=== PATIENT | female | born 1935 | race Caucasian/White ===

== ENCOUNTER → 2021-02-25 | Outpatient (CLI) | payer MEDICARE, BC ==
[~2021-02-25] MED LIST: AMOXICILLIN 8751 TAB PO; ASMANEX HF100 MCG/Ac IH; ASPIRIN 81M81 MG/TA2 PO; CALCIUM CITRATE1 TA1 PO; FERROUS SU325 MG/TAB PO; MASON NATURAL1200 MG PO; MEVACOR40 MG PO; NIACOR500 MG PO; NORCO 325 MG-7.1 TAB PO; NORVASC 5MG5 MG/TAB PO; TENORMIN 5050 MG/TAB PO; THE MEDICINE S200 M2 PO
== END ==
LOC: COL.VAS 11:40
DX: I08.0 Rheumatic disorders of both mitral and aortic valves (principal)

== ENCOUNTER 2022-11-28 13:09 | Inpatient (IN) | payer MEDICARE, BC ==
[~2022-11-28] VITALS: Ht 152.4 cm; Wt 74.0 kg
[2022-11-28 14:26] LABS: ALBUMIN 2.9 gm/dL (3.4-4.8); BILIRUBIN,TOTAL 0.8 mg/dL (0.2-1.2); C-REACTIVE PROTEIN 12.56 mg/dL (0.00-0.50); CALCIUM 8.7 mg/dL (8.4-10.2); CREATININE, serum 1.29 mg/dL (0.57-1.11); POTASSIUM 4.7 mmol/L (3.5-4.5); TOTAL PROTEIN 7.1 gm/dL (6.2-8.1)
[2022-11-28 14:34] LABS: TROPONIN-I 0.019 ng/mL (0.00-0.033)
[2022-11-28 15:00] LABS: BASO % 0.2 % (0.0-2.0); GRAN # 8.6 K/mm3 (1.4-6.5); GRAN % 79.8 % (42.2-75.2); HEMATOCRIT 38.4 % (37.0-47.0); HEMOGLOBIN 12.3 g/dl (12.5-16.0); LYMPH # 1.2 K/mm3 (1.2-3.4); LYMPH % 11.2 % (20.0-51.0); MEAN CELL VOLUME 89 fl (80.0-100.0); MEAN CORPUSCULAR HEMOGLOBIN 29 pg (27-31); MEAN CORPUSCULAR HGB CONC 32 g/dl (33.0-37.0); MEAN PLATELET VOLUME 10.1 fl (7.4-10.4); MONO # 0.9 K/mm3 (0.1-0.6); MONO % 8.3 % (1.7-9.3); PLATELET COUNT 176 K/mm3 (130-400); RED BLOOD COUNT 4.31 M/mm3 (4.10-5.30); REDCELL DISTRIBUTION WIDTH-CV 14.6 % (11.5-14.5)
[2022-11-28] MEDS ORDERED: MELATONIN5 M1 SL (16:02)
[2022-11-28 16:44] VITALS: BP 113/71; PULSE 98; TEMP 99.8
[2022-11-28 16:58] LABS: COLLECTION METHOD CLEAN CATCH
[2022-11-28 17:08] LABS: URINE APPEARANCE Clear (CLEAR/HAZY); URINE COLOR Amber (YELLOW); URINE PROTEIN(semi-quant) 2+ (NEGATIVE)
[2022-11-28 17:09] LABS: URINE BLOOD TRACE-INTACT (NEGATIVE); URINE GLUCOSE Negative (NEGATIVE); URINE NITRATE Negative (NEGATIVE); URINE UROBILINOGEN 0.2 E.U/dL (0.2-1.0)
[2022-11-28 17:10] LABS: URINE KETONE TRACE (NEGATIVE)
[2022-11-28 18:11] LABS: MUCOUS Present (NOT PRESENT); URINE BACTERIA None Seen /hpf (NONE SEEN); URINE RBC 0-2 /hpf (0-2)
[2022-11-28 19:41] VITALS: BP 151/46; PULSE 87; TEMP 98.8
[2022-11-28 23:58] VITALS: BP 127/50; PULSE 62; TEMP 97.5
[2022-11-29 03:31] VITALS: BP 116/61; PULSE 61; TEMP 97.4
[2022-11-29 07:31] LABS: BASO % 0.1 % (0.0-2.0); GRAN # 8.1 K/mm3 (1.4-6.5); GRAN % 85.3 % (42.2-75.2); HEMATOCRIT 37.6 % (37.0-47.0); HEMOGLOBIN 12.2 g/dl (12.5-16.0); LYMPH # 0.8 K/mm3 (1.2-3.4); LYMPH % 8.1 % (20.0-51.0); MEAN CELL VOLUME 88 fl (80.0-100.0); MEAN CORPUSCULAR HEMOGLOBIN 29 pg (27-31); MEAN CORPUSCULAR HGB CONC 32 g/dl (33.0-37.0); MEAN PLATELET VOLUME 10.3 fl (7.4-10.4); MONO # 0.6 K/mm3 (0.1-0.6); MONO % 6.1 % (1.7-9.3); PLATELET COUNT 159 K/mm3 (130-400); RED BLOOD COUNT 4.27 M/mm3 (4.10-5.30); REDCELL DISTRIBUTION WIDTH-CV 14.7 % (11.5-14.5)
[2022-11-29 07:39] LABS: CALCIUM 8.8 mg/dL (8.4-10.2); CREATININE, serum 1.1 mg/dL (0.57-1.11); POTASSIUM 4.5 mmol/L (3.5-4.5)
[2022-11-29 08:39] VITALS: BP 137/64; PULSE 69; TEMP 97.9
[2022-11-29 11:46] VITALS: BP 151/61; PULSE 72; TEMP 97.5
[2022-11-29 15:59] VITALS: BP 133/57; PULSE 75; TEMP 97.7
[2022-11-29 20:05] VITALS: BP 139/68; PULSE 73; TEMP 97.4
[2022-11-30 00:02] VITALS: BP 119/51; PULSE 72; TEMP 97.4
[2022-11-30 03:33] VITALS: BP 141/58; PULSE 66; TEMP 97.9
[2022-11-30 07:19] LABS: CALCIUM 8.8 mg/dL (8.4-10.2); CREATININE, serum 1.52 mg/dL (0.57-1.11); POTASSIUM 4.7 mmol/L (3.5-4.5)
[2022-11-30 08:07] LABS: BASO % 0.1 % (0.0-2.0); GRAN # 13.3 K/mm3 (1.4-6.5); GRAN % 83.2 % (42.2-75.2); HEMATOCRIT 37.8 % (37.0-47.0); HEMOGLOBIN 12.2 g/dl (12.5-16.0); LYMPH # 1.6 K/mm3 (1.2-3.4); LYMPH % 9.8 % (20.0-51.0); MEAN CELL VOLUME 88 fl (80.0-100.0); MEAN CORPUSCULAR HEMOGLOBIN 28 pg (27-31); MEAN CORPUSCULAR HGB CONC 32 g/dl (33.0-37.0); MEAN PLATELET VOLUME 10.8 fl (7.4-10.4); MONO % 6.3 % (1.7-9.3); PLATELET COUNT 249 K/mm3 (130-400); RED BLOOD COUNT 4.29 M/mm3 (4.10-5.30); REDCELL DISTRIBUTION WIDTH-CV 14.6 % (11.5-14.5)
[2022-11-30 08:30] VITALS: BP 133/62; PULSE 71; TEMP 97.5
[2022-11-30] MEDS ORDERED: MEDROL 4MG DOSPA4 MG PO (11:47)
[2022-11-30 11:48] VITALS: BP 139/66; PULSE 72; TEMP 98.5
[2022-11-30] MEDS ORDERED: RT Albuterol HFA MDI IH (11:50)
[2022-11-30] MEDS ORDERED: AMOXICILLIN/CLA1 TA1 PO (11:50)
== END 2022-11-30 16:03 | disposition home or self-care (01) | DRG 193 ==
LOC: COL.ER 13:09 → MEDICAL 15:25
PROVIDERS: Emergency Medicine; Nurse Practitioner; Physician Assistant; ADMIT Internal Medicine
DX: J18.9 Pneumonia, unspecified organism (principal); J96.01 Acute respiratory failure with hypoxia; N17.9 Acute kidney failure, unspecified; I27.20 Pulmonary hypertension, unspecified; G47.00 Insomnia, unspecified; G47.33 Obstructive sleep apnea (adult) (pediatric); Z66 Do not resuscitate; E78.5 Hyperlipidemia, unspecified; I12.9 Hypertensive chronic kidney disease with stage 1 through stage 4 chronic kidney disease, or unspecified chronic kidney disease; N18.9 Chronic kidney disease, unspecified; E87.5 Hyperkalemia; J98.4 Other disorders of lung; Z20.822 Contact with and (suspected) exposure to COVID-19; I08.1 Rheumatic disorders of both mitral and tricuspid valves; J44.9 Chronic obstructive pulmonary disease, unspecified; D72.829 Elevated white blood cell count, unspecified; T38.0X5A Adverse effect of glucocorticoids and synthetic analogues, initial encounter; Z90.710 Acquired absence of both cervix and uterus; Z23 Encounter for immunization
CPT/HCPCS: A9284; J0696; J1650; J7030; J7512

== ENCOUNTER 2024-02-05 06:55 | Day surgery (SDC) | payer MEDICARE, BC ==
[~2024-02-05] VITALS: Ht 157.6 cm; Wt 74.5 kg
[~2024-02-05 06:55] MED LIST changes: +AMOXICILLIN/CLA1 TA1 PO; +ELIQUIS 2.5 PO; +LASIX 20MG TABL20 MG PO; +MEDROL 4MG DOSPA4 MG PO; +MELATONIN5 M1 SL; +NS 1,000 ML IV SCH; +OMEGA-3 FISH1000 MG PO; +PACERONE400 MG PO; +RT ADVAIR 528 DISKUS IH; +RT Albuterol HFA MDI IH; +VITAMIN D362.5 MC1 PO
[2024-02-05] MEDS ORDERED: Lidocaine PF 2% (20 MG/ML) 5 ML VIAL ONE (07:18)
[2024-02-05] MEDS ORDERED: INCRUSE EL62.5 MCG/A IH (07:21)
[2024-02-05] MEDS ORDERED: NS Flush 10 ML SYRINGE PRN ICA (07:30)
[2024-02-05 07:42] VITALS: BP 141/90; PULSE 101; TEMP 98.1
[2024-02-05 07:50] LABS: BASO % 0.3 % (0.0-2.0); EOS # 0.2 K/mm3 (0.0-0.7); EOS % 2.5 % (0.0-4.0); GRAN # 5.2 K/mm3 (1.4-6.5); GRAN % 80.1 % (42.2-75.2); HEMOGLOBIN 11.1 g/dl (12.5-16.0); LYMPH # 0.6 K/mm3 (1.2-3.4); LYMPH % 8.9 % (20.0-51.0); MEAN CELL VOLUME 89 fl (80.0-100.0); MEAN CORPUSCULAR HEMOGLOBIN 28 pg (27-31); MEAN CORPUSCULAR HGB CONC 31 g/dl (33.0-37.0); MEAN PLATELET VOLUME 9.4 fl (7.4-10.4); MONO # 0.5 K/mm3 (0.1-0.6); MONO % 7.7 % (1.7-9.3); PLATELET COUNT 171 K/mm3 (130-400); RED BLOOD COUNT 3.95 M/mm3 (4.10-5.30); REDCELL DISTRIBUTION WIDTH-CV 16.4 % (11.5-14.5)
[2024-02-05 07:56] LABS: HEMATOCRIT 35.3 % (37.0-47.0)
[2024-02-05 08:08] LABS: CALCIUM 8.6 mg/dL (8.4-10.2); CREATININE, serum 1.47 mg/dL (0.57-1.11); MAGNESIUM 1.1 mg/dL (1.6-2.6); POTASSIUM 3.6 mEq/L (3.5-4.5)
[2024-02-05 08:15] LABS: INR 1.7 (0.8-3.0); PROTHROMBIN TIME 18.2 SECONDS (9.7-12.8)
[2024-02-05 08:17] LABS: PARTIAL THROMBOPLASTIN TIME 35.5 SECONDS (26.0-37.0)
[2024-02-05] MEDS ORDERED: NS Flush 10 ML SYRINGE BID ICA SCH (09:00)
[2024-02-05 09:40] VITALS: BP 135/76; PULSE 70
--- NOTE | 2024-02-05 09:41 | NUR ---
PATIENT ALERT AND ORIENTED, VSS. PATIENT'S FAMILY BROUGHT TO BEDSIDE, PLAN OF CARE REVIEWED. TRANSFER OF CARE TO [facility]. BED REMAINS IN LOWEST POSITION, CALL LIGHT WITHIN REACH, X3 BEDRAILS IN PLACE. PT PLACED ON BASELINE O2 AT 4 L NC.
[2024-02-05 09:45] VITALS: BP 152/97; PULSE 68
[2024-02-05 10:00] VITALS: BP 147/69; PULSE 66
[2024-02-05 10:15] VITALS: BP 154/76; PULSE 65
[2024-02-05 10:30] VITALS: BP 150/74; PULSE 68
--- NOTE | 2024-02-05 11:05 | NUR ---
pt tolerated recovery period well. vs remained within normal limits, iv was discontinued upon discharge. pt verbalized understanding of discharge instructions and was assisted to main lobby via wheelchair. pt free from complaints upon discharge and tolerated po fluids during recovery.
== END 2024-02-05 10:40 | disposition home or self-care (01) ==
LOC: COL.CAR 06:55
PROVIDERS: Internal Medicine Cardiovascular Disease
DX: I48.0 Paroxysmal atrial fibrillation (principal); I27.20 Pulmonary hypertension, unspecified; I10 Essential (primary) hypertension; G47.33 Obstructive sleep apnea (adult) (pediatric); J44.9 Chronic obstructive pulmonary disease, unspecified; E78.2 Mixed hyperlipidemia; I35.1 Nonrheumatic aortic (valve) insufficiency; I36.1 Nonrheumatic tricuspid (valve) insufficiency; Z99.81 Dependence on supplemental oxygen; Z99.89 Dependence on other enabling machines and devices; Z79.01 Long term (current) use of anticoagulants; Z79.899 Other long term (current) drug therapy
CPT/HCPCS: J0282; J2704; J7030; J7060

== ENCOUNTER 2024-04-18 20:52 | Emergency (ER) | payer MEDICARE, BC ==
[~2024-04-18] VITALS: Ht 160 cm; Wt 70.5 kg
[~2024-04-18 20:52] MED LIST changes: +INCRUSE EL62.5 MCG/A IH; -NS 1,000 ML IV SCH
[2024-04-18 20:58] VITALS: TEMP 98.4
[2024-04-18] MEDS ORDERED: Cephalexin 500 MG CAP PO ONE (22:00)
[2024-04-18] MEDS ORDERED: CEPHALEXIN500 M1 PO (22:44)
[2024-04-18 23:00] VITALS: BP 184/81; PULSE 80
== END 2024-04-18 23:05 | disposition home or self-care (01) ==
LOC: COL.ER 20:52
DX: L03.032 Cellulitis of left toe (principal)

== ENCOUNTER → 2024-06-23 | Outpatient (CLI) | payer MEDICARE, BC ==
[~2024-06-23] MED LIST changes: +CEPHALEXIN500 M1 PO
== END ==
LOC: COL.VAS 10:38
DX: I37.1 Nonrheumatic pulmonary valve insufficiency (principal); I27.20 Pulmonary hypertension, unspecified